=== PATIENT | female | born 1955 | race Caucasian/White ===

== ENCOUNTER 2019-02-04 06:19 | Day surgery (SDC) | payer MEDICARE, OTHER ==
[2019-01-28 12:41] LABS: ABSOLUTE BASOPHILS # (AUTO) 0.1 10^3/uL (0.0-0.2); ABSOLUTE EOSINOPHILS # (AUTO) 0.1 10^3/uL (0.0-0.6); ABSOLUTE LYMPHOCYTES (AUTO) 2.7 10^3/uL (0.5-4.7); ABSOLUTE MONOCYTES (AUTO) 0.6 10^3/uL (0.1-1.4); BASOPHILS % (AUTO) 0.6 % (0-2); EOSINOPHILS % (AUTO) 0.9 % (0-6); HEMATOCRIT 37.1 % (36.0-47.0); HEMOGLOBIN 11.8 g/dL (12.0-15.5); LYMPHOCYTES % (AUTO) 25.7 % (13-45); MEAN CORPUSCULAR HEMOGLOBIN 25.1 pg (27.0-33.4); MEAN CORPUSCULAR HGB CONC 31.9 g/dL (32.0-36.0); MEAN CORPUSCULAR VOLUME 79 fl (80-97); MONOCYTES % (AUTO) 5.3 % (3-13); PLATELET COUNT 223 10^3/uL (150-450); RED BLOOD COUNT 4.71 10^6/uL (3.72-5.28); RED CELL DISTRIBUTION WIDTH 20.8 % (11.5-14.0); SEGMENTED NEUTROPHILS % (AUTO) 67.5 % (42-78); TOTAL CELLS COUNTED % (AUTO) 100 %; WHITE BLOOD COUNT 10.3 10^3/uL (4.0-10.5)
[2019-01-28 13:01] LABS: ANION GAP 6 (5-19); BLOOD UREA NITROGEN 8 mg/dL (7-20); CALCIUM 8.7 mg/dL (8.4-10.2); CARBON DIOXIDE 32 mmol/L (22-30); CHLORIDE 104 mmol/L (98-107); GLUCOSE 106 mg/dL (75-110)
--- NOTE | 2019-01-28 13:08 | EKG REPORT ---
SEVERITY:- NORMAL ECG - SINUS RHYTHM : Confirmed by: Meg Sen MD 28-Jan-2019 13:07:34
[~2019-02-04 06:19] MED LIST: LACTATED RINGERS 1000 ML IV PRN
[2019-02-04] MEDS ORDERED: KETAMINE HCL INJ 500 MG/10 ML VIAL ONE (06:38)
[2019-02-04] MEDS ORDERED: MIDAZOLAM 2 MG/2 ML INJ ONE (06:38)
[2019-02-04] MEDS ORDERED: FENTANYL CITRATE INJ/PF 100 MCG/2 ML AMPUL ONE ×2 (06:38→09:42)
[2019-02-04] MEDS ORDERED: PROPOFOL INJ 200 MG/20 ML VIAL IV ONE (06:38)
[2019-02-04] MEDS ORDERED: LIDOCAINE 0.5% INJ-PF (5 MG/ML) 50 ML SDV ONE (06:40)
[2019-02-04 07:30] LABS: INTERNATIONAL RATION (INR) 0.92; PROTHROMBIN TIME 12.3 SEC (11.4-15.4)
[2019-02-04 07:31] LABS: PARTIAL THROMBOPLASTIN TIME 27.1 SEC (23.5-35.8)
[2019-02-04] MEDS ORDERED: ALBUTEROL SULFATE 0.083% NEB 2.5 MG/3 ML AMPUL NEB ONE (08:08)
[2019-02-04] MEDS ORDERED: BUPIVACAINE HCL 0.25 % INJ/PF (2.5 MG/1 ML) 30 ML VIAL ONE (08:17)
[2019-02-04] MEDS ORDERED: TRIAMCINOLONE ACETONIDE INJ 40 MG/1 ML VIAL ONE (08:17)
[2019-02-04] MEDS ORDERED: LIDOCAINE 1%/EPINEPHRINE INJ 20 ML VIAL ONE (08:18)
[2019-02-04] MEDS ORDERED: BACITRACIN ZINC OINTMENT 15 GM ONE (08:18)
[2019-02-04] MEDS ORDERED: LIDOCAINE 1% INJ-PF (10 MG/ML) 30 ML SDV ONE (08:27)
[2019-02-04] MEDS ORDERED: EPINEPHRINE INJ/PF 1 MG/1 ML AMPULE ONE (08:27)
[2019-02-04] MEDS ORDERED: FENTANYL CITRATE INJ/PF 100 MCG/2 ML AMPUL IV PRN ×3 (09:00)
[2019-02-04] MEDS ORDERED: DIPHENHYDRAMINE HCL 50 MG/ML VIAL IV PRN (09:00)
[2019-02-04] MEDS ORDERED: MEPERIDINE HCL/PF INJ 25 MG/1 ML DISP.SYRIN IV PRN (09:00)
[2019-02-04] MEDS ORDERED: MORPHINE SULFATE 10 MG/ML INJ IV PRN (09:00)
[2019-02-04] MEDS ORDERED: ONDANSETRON HCL INJ/PF 4 MG/2 ML SDV IV PRN (09:00)
[2019-02-04] MEDS ORDERED: PROMETHAZINE HCL INJ 25 MG/1 ML VIAL IV PRN ×2 (09:00)
[2019-02-04] MEDS ORDERED: LIDOCAINE 1% INJ (10 MG/ML) 10 ML MDV INJ ONE (09:04)
[2019-02-04] MEDS ORDERED: BUPIVACAINE HCL 0.25 % INJ/PF (2.5 MG/1 ML) 30 ML VIAL INJ ONE (09:04)
[2019-02-04] MEDS ORDERED: EPINEPHRINE INJ/PF 1 MG/1 ML AMPULE SUBCUT ONE (09:05)
[2019-02-04] MEDS ORDERED: TRIAMCINOLONE ACETONIDE INJ 40 MG/1 ML VIAL INJ ONE (09:05)
--- NOTE | 2019-02-04 09:39 | Operative Report ---
Operative Report DATE OF SURGERY: 02/04/19 PREOPERATIVE DIAGNOSIS: lumbar spinal stenosis with neurogenic claudication POSTOPERATIVE DIAGNOSIS: same OPERATION: Minimally invasive lumbar decompression at L4-5 followed by lumbar epidural steroid injection SURGEON: CLARISSE MICHAEL ANESTHESIA: LMAC TISSUE REMOVED OR ALTERED: Lumbar epidural ligament and small pieces of lumbar lamina at L4 and L5 COMPLICATIONS: None ESTIMATED BLOOD LOSS: None INTRAOPERATIVE FINDINGS: Improved spread of epidural contrast following complet ion of procedure PROCEDURE: After obtaining informed consent advised the patient of the risks and benefits patient was taken to the operating room placed comfortably in the prone position. MAC anesthesia was administered after monitors were applied. Patient is was then prepped and draped in usual fashion with chlorhexidine and appropriate drying time. Using fluoroscopy the lumbar spine was evaluated the L4-5 interspace was readily identified landmarks were identified and marked on the skin for bilateral approach to the L5 4 5 interspace skin was anesthetized above the L4-5 interspace with 1% lidocaine for positioning of the lumbar epidural needle to a needle was inserted without difficulty into the L4-5 space near the midline contrast was injected Isovue M2 100 and good spread was noted patient was made to proceed with the procedure beginning on the left side over the sacrum at a predetermined site small incision was made subcutaneous tissue down to the periosteum of L5 was anesthetized with 1% lidocaine with bicarb followed by quarter percent Vivacaine with epinephrine the mild trocar was then advanced to the lamina and checked in multiple views as it was advanced to the position. The bone rongeur was then used to remove ligament and lamina and the L4-5 level and the L5 level. Contrast was then injected in demonstrating improved spread at this level. Procedure was then repeated on the right side the same fashion on completion and demonstration of improved spread of contrast final epidural steroid injection was given the existing needle with 80 mg of Kenalog instrumentation was then removed the skin was cleansed Dermabond cement was placed over the 3 puncture sites Steri-Strips were used to close the lower 2 Steri-Strips Telfa and Tegaderm dressings were then applied. Patient was then taken the PACU for further postoperative care and monitoring. End of dictation
[2019-02-04] MEDS ORDERED: ACETAMINOPHEN 1,000 MG/100 ML RTUPB IV ONE (09:42)
[2019-02-04 11:47] VITALS: BP 109/65
--- NOTE | 2019-02-04 12:08 | RADIOLOGY REPORT (SQ) ---
EXAM DESCRIPTION: NO CHG FLUORO; L SPINE 2 VIEWS COMPLETED DATE/TIME: 02/04/2019 11:23 am REASON FOR STUDY: MILD M48.062 SPINAL STENOSIS, LUMBAR REGION WITH NEUROGENIC DENNIS Z79.899 OTHER ASSISTED (CURRENT) DRUG THERAPY Z79.01 ASSISTED (CURRENT) USE OF ANTICOAGULANTS COMPARISON: None. FLUOROSCOPY TIME: 3.6 minutes More than 20 images saved to PACS. TECHNIQUE: Intra-operative images acquired during surgical procedure to evaluate progress. NUMBER OF IMAGES: More than 20 LIMITATIONS: None. FINDINGS: Numerous spine images during injections and instrumentation. Please correlate with operat blanca note. IMPRESSION: IMAGE(S) OBTAINED DURING PROCEDURE. COMMENT: Quality ID [id number]: Final reports for procedures using fluoroscopy that document radiation exp osure indices, or exposure time and number of fluorographic images (if radiation exposure indices are not available) Please consult full operative report of the attending physician for description of the procedure. TECHNICAL DOCUMENTATION: JOB ID: [id number] [employer]- All Rights Reserved Reading location - IP/workstation name: [email or web address]
--- NOTE | 2019-02-04 12:08 | RADIOLOGY REPORT (SQ) ---
EXAM DESCRIPTION: NO CHG FLUORO; L SPINE 2 VIEWS COMPLETED DATE/TIME: 02/04/2019 11:23 am REASON FOR STUDY: MILD M48.062 SPINAL STENOSIS, LUMBAR REGION WITH NEUROGENIC DENNIS Z79.899 OTHER SENIOR LIVING (CURRENT) DRUG THERAPY Z79.01 SENIOR LIVING (CURRENT) USE OF ANTICOAGULANTS COMPARISON: None. FLUOROSCOPY TIME: 3.6 minutes More than 20 images saved to PACS. TECHNIQUE: Intra-operative images acquired during surgical procedure to evaluate progress. NUMBER OF IMAGES: More than 20 LIMITATIONS: None. FINDINGS: Numerous spine images during injections and instrumentation. Please correlate with operat blanca note. IMPRESSION: IMAGE(S) OBTAINED DURING PROCEDURE. COMMENT: Quality ID [id number]: Final reports for procedures using fluoroscopy that document radiation exp osure indices, or exposure time and number of fluorographic images (if radiation exposure indices are not available) Please consult full operative report of the attending physician for description of the procedure. TECHNICAL DOCUMENTATION: JOB ID: [id number] [employer]- All Rights Reserved Reading location - IP/workstation name: [email or web address]
== END 2019-02-04 11:35 | disposition home or self-care (01) ==
LOC: OROUT 06:19
PROVIDERS: ATTEND Pain Medicine Interventional Pain Medicine
DX: M48.062 Spinal stenosis, lumbar region with neurogenic claudication (principal); Z00.6 Encounter for examination for normal comparison and control in clinical research program; J44.9 Chronic obstructive pulmonary disease, unspecified; I10 Essential (primary) hypertension; F17.210 Nicotine dependence, cigarettes, uncomplicated; Z88.8 Allergy status to other drugs, medicaments and biological substances; Z88.6 Allergy status to analgesic agent; Z88.0 Allergy status to penicillin; G89.4 Chronic pain syndrome; F32.9 Major depressive disorder, single episode, unspecified; M51.36 Other intervertebral disc degeneration, lumbar region; Z79.891 Long term (current) use of opiate analgesic; Z79.899 Other long term (current) drug therapy; Z79.01 Long term (current) use of anticoagulants; Z87.11 Personal history of peptic ulcer disease; Z99.81 Dependence on supplemental oxygen; E66.9 Obesity, unspecified
CPT/HCPCS: 93005; 36415 ×2; 82947; 85025; 85610; 85730; 80048; 72100; 93010; 0275T; C1889; Q9966; J0171; J3010; J3490 ×3; J3301; J2704; A9270; J0131; 630; J2250